=== PATIENT | male | born 1950 | race Caucasian/White ===

== ENCOUNTER 2016-08-23 10:31 | Inpatient (IN) | payer MEDICAID ==
[~2016-08-23] VITALS: Ht 53.3 cm; Wt 73.2 kg
--- NOTE | 2016-08-28 08:47 | HP ---
ADMIT: 08/23/2016 RM/LOC: [address] [facility] MR#: [id number] [address] [facility] [address] [place], [place] [address] [place] [address] History and Physical SEX: M AGE: 66 : 1950 Corrected: 08/24/2016 1833 ajf DATE OF SERVICE: CHIEF COMPLAINT: Shortness of breath. HISTORY OF PRESENT ILLNESS: Neo is a 66-year-old white male resident, who currently resides at [place], [place] at [facility]. He is admitted on transfer from [place], [place] on ER assessment where a chest x-ray showed bilateral patchy lung infiltrates with an elevated white count and concern for pneumonia with hypoxia. On transfer, Neo states he feels fine. He just wants me to give him some oxygen and send him home. He states he quit smoking, and he has been chewing tobacco and feels that he should not have problems breathing. He denies any fevers, chills, or sweats; just states he is short of breath. PAST MEDICAL HISTORY: Very well documented in the records and includes a history of COPD with nicotine dependency, currently on chewing tobacco. He has a history of schizophrenia along with chronic leukocytosis followed by Heme/Oncology in the past, hypertension, and COPD. MEDICATIONS: On admission include: 1. Advair 250/50 one inhalation b.i.d. 2. Ensure one can b.i.d. 3. Docusate 100 mg daily. 4. Siltussin SA 100 mg/5 mL as directed. 5. Amlodipine 5 mg daily. 6. Aspirin 81 mg daily. 7. Fluphenazine 10 mg. 8. Zyprexa 10 mg daily. 9. Trihexyphenidyl 5 mg t.i.d. 10.Proventil HFA inhaler 2 puffs q.i.d. p.r.n. 11.Zyprexa 20 mg daily. 12.BuSpar 15 mg b.i.d. 13.Ferrous sulfate 325 mg daily. 14.Oxcarbazepine 300 mg t.i.d. 15.Metoprolol succinate ER 100 mg b.i.d. ALLERGIES: NONE. SOCIAL HISTORY: Is that of a 66-year-old, single, white male. He currently resides in [facility] in [place], [place]. He previously was a heavy smoker, but recently switched to chew. He is on disability due to his schizophrenia. FAMILY HISTORY: Includes a brother with cirrhosis. His mother has . REVIEW OF SYSTEMS: Remarkable for hypoxia, shortness of breath, and mild ADMIT: 08/23/2016 RM/LOC: [address] [facility] MR#: [id number] [address] [address] [place] [address] History and Physical SEX: M AGE: 66 : 1950 cough along with his baseline mental status problems and schizophrenia. Remainder of review of systems is negative. PHYSICAL EXAMINATION: VITAL SIGNS: Temperature is 99.2, pulse 80, respiratory rate 20, blood pressure 122/71 with sat 90% on oxygen. LABORATORY DATA: Chest x-ray in [place] showed patchy infiltrate per Radiology over read per [place]. Chest x-ray was not available on transfer. Labs done in [place] reviewed include an elevated white count of 12.6, hemoglobin 12.2, and platelet count of 318,000. ABGs reviewed, pH 7.41 with pCO2 of 42 and a PO2 of 77. Sodium 135, potassium 4.5, BUN 19, creatinine 0.85 with glucose 147. C-reactive protein is elevated at 7.79. D-dimer 1980. Lactic acid 0.93. CPK 45 with an MB of 5. Troponin 0.15. ASSESSMENT: Patchy infiltrative pneumonia, rule out pulmonary embolisms with hypoxia. Other problems include: 1. COPD exacerbation. 2. Essential hypertension. 3. Chronic leukocytosis. 4. Nicotine dependency. 5. Schizophrenia. PLAN: We will continue his home medications with the exception of holding his Proventil inhaler, his multivitamin, IV antibiotics, steroids, and nebulizers. Ordered CTA of the chest obtained due to elevated D-dimer and hypoxia to rule out pulmonary embolisms. We will proceed further evaluation and management based on course during hospitalization. Rikki Srivastava MD/ lora JOB #: [id number] CC: Rikki Srivastava, Attending Physician UNKNOWN, Family Physician Corrected: 08/24/2016 1833 ajf
--- NOTE | 2016-10-08 17:10 | DS ---
ADMIT: 08/23/2016 RM/LOC: [address] [facility] MR#: [id number] [address] [facility] [address] [place] [id number] [place] [address] General Discharge Summary SEX: M AGE: 66 : 1950 ADMISSION DATE: 08/23/2016 DISCHARGE DATE: 08/26/2016 INDICATION FOR HOSPITALIZATION: Neo is a 66-year-old, white male, resident of [facility] from [place], [place], who is admitted to [place] on transfer from [place] after the ER assessment shows a bilateral patchy pneumonia with hypoxia and leukocytosis. He was accepted on transfer for further evaluation and treatment. Please see his admission H and P for further details regarding his history of present illness, past medical history, physical exam, and assessment at the time of hospitalization. HOSPITAL COURSE: On admission, Lovenox therapy was initiated. He was given IV steroids, NicoDerm patches; was started on IV Zosyn and Levaquin for his pneumonia with COPD exacerbation. CTA of the chest was ordered to rule out pulmonary embolism due to his hypoxia. By August 24, vital signs were stable on oxygen. CTA showed no pulmonary embolism with emphysema noted with bilateral infiltrates and a 15 cm bleb. He was subsequently treated for pneumonia with hypoxia and nicotine dependency and continued on his current regimen. Wound Care was consulted due to a right foot plantar ulcer and Dr. Galan was consulted for Podiatry care. By August 25, telemetry was discontinued. Speech Therapy was consulted. His Levaquin and Zosyn were discontinued IV, and he was switched to oral Levaquin and Augmentin Extra- Strength. He was switched from IV steroids to oral steroids and arrangements for discharge with followup were made. DISCHARGE MEDICATIONS: His meds on discharge are listed on his MAR. Please include a copy of his discharge medications. He was discharged on: 1. Augmentin Extra-Strength 1000 mg two b.i.d. with meals for 10 days. 2. Levaquin 500 mg daily for 10 days along with his tapering steroid regimen. He is to follow up per Dr. Yoder in the clinic and [facility] and was ultimately discharged to home on the to [facility] with followup in 1 to 2 weeks which was ultimately set up with myself. LABORATORY AND X-RAY DATA: Include: On August 25, hemoglobin of 12.6. On August 24; white count 11.1, hemoglobin 11.9 with platelet count of 268,000. On August 24; sodium 133, potassium 4.9, BUN of 18, creatinine 0.7, glucose 134. CTA of the chest on August 23 shows emphysema with bilateral ground- glass infiltrates, consolidations, probable representing pneumonia in the lower lobes, a large sided 15 cm pleural bleb on the right with chronic interstitial fibrosis. No PE. Chest x-ray on August 24 shows COPD with infection or edema. ADMIT: 08/23/2016 RM/LOC: [address] [facility] MR#: [id number] [id number] [place] [id number] [place] [address] General Discharge Summary SEX: M AGE: 66 : 1950 FINAL DISCHARGE DIAGNOSES: Include: 1. Bilateral community-acquired pneumonia with chronic obstructive pulmonary disease exacerbation and a 15 cm bleb with hypoxia. 2. Chronic leukocytosis followed by Heme/Oncology. 3. Benign essential hypertension. 4. Nicotine dependency. 5. Schizophrenia. PROCEDURES: Include oxygen, IV steroids, antibiotics, and nebulizers along with medical management of his fluid electrolytes and attempts at nicotine detoxification and treatment with appropriate outpatient followup. Please see his hospital record for further details. Rikki Srivastava MD/ lora JOB #: [id number] CC: Rikki Srivastava MD, Attending Physician UNKNOWN, Family Physician
== END 2016-08-26 16:30 | disposition other institution (70) | DRG 190 ==
LOC: 4PCU 10:31
PROVIDERS: ADMIT Family Medicine
DX: J44.0 Chronic obstructive pulmonary disease with (acute) lower respiratory infection (principal); J18.9 Pneumonia, unspecified organism; J96.11 Chronic respiratory failure with hypoxia; J44.1 Chronic obstructive pulmonary disease with (acute) exacerbation; F17.220 Nicotine dependence, chewing tobacco, uncomplicated; F20.9 Schizophrenia, unspecified; D72.829 Elevated white blood cell count, unspecified; I10 Essential (primary) hypertension; Z79.82 Long term (current) use of aspirin